=== PATIENT | female | born 1955 | race Caucasian/White ===

== ENCOUNTER 2016-10-14 18:53 | Emergency (ER) | payer OTHER ==
[~2016-10-14] VITALS: Ht 167.6 cm; Wt 54.4 kg
[2016-10-14] VITALS (10 sets, daily range): BP systolic 123–150; BP diastolic 78–90
[2016-10-14] MEDS ORDERED: Morphine Sulfate 4mg/ml Inj IM ONE (19:15)
[2016-10-14] MEDS ORDERED: Propofol 10mg/ml 20ml IV ONE ×2 (20:02→20:45)
[2016-10-14 20:07] LABS: BASOPHILS % (AUTO) 1.6 % (0.0-2.0); EOSINOPHILS % (AUTO) 1.5 % (0.0-3.0); LYMPHOCYTES % (AUTO) 27.7 % (20.0-45.0); MEAN CORPUSCULAR HEMOGLOBIN 36.3 PG (27.0-31.0); MEAN CORPUSCULAR HGB CONC 36.5 G/DL (32.0-36.0); MEAN CORPUSCULAR VOLUME 99 FL (80-99); MONOCYTES % (AUTO) 8.3 % (1.0-10.0); NEUTROPHILS % (AUTO) 60.8 % (45.0-75.0); PLATELET COUNT 236 K/UL (150-450); RED BLOOD COUNT 3.65 M/UL (4.20-5.40); RED CELL DISTRIBUTION WIDTH 11.7 % (11.6-14.8); WHITE BLOOD COUNT 9.1 K/UL (4.8-10.8)
--- NOTE | 2016-10-14 20:24 | Emergency Room Report ---
History of Present Illness General Chief Complaint: Lower Extremity Injury Source: Patient (HUMERA PARISI) Present Illness HPI The patient is a 61-year-old female presenting with right ankle pain. She states that she tripped on a tree branch today and felt the right ankle folded underneath her. Pain is an 8/10 dull ache and does not radiate from the right ankle. Worse with touch. She denies any numbness or tingling. She states she is unable to bear weight on the right foot. She denies previous injury to the ankle. She denies any other injury. She denies any other symptoms (HUMERA PARISI) Allergies: Coded Allergies: PENICILLINS (Verified Allergy, Unknown, 10/14/16) Patient History Past Medical History: see triage record Pertinent Family History: none Now: No Reviewed Nursing Documentation: PMH: Agreed, PSxH: Agreed (HUMERA PARISI) Nursing Documentation-PMH Hx Asthma: Yes (HUMERA PARISI) Review of Systems All Other Systems: negative except mentioned in HPI (HUMERA PARISI) Physical Exam Vital Signs Date Time Temp Pulse Resp B/P Pulse Ox O2 Delivery O2 Flow Rate FiO2 10/14/16 18:47 97.9 78 16 125/76 98 Room Air Sp02 EP Interpretation: reviewed, normal General Appearance: no apparent distress, alert, GCS 15, non-toxic Head: normocephalic, atraumatic Eyes: bilateral eye normal inspection, bilateral eye PERRL ENT: hearing grossly normal, normal pharynx, no angioedema, normal voice Respiratory: chest non-tender, lungs clear, normal breath sounds, speaking full sentences Cardiovascular #1: regular rate, rhythm, no edema Musculoskeletal: decreased range of motion, swelling - R ankle, other - R ankle deformity, tender - TTP diffusely over the R ankle Neurologic: alert, oriented x3, responsive, motor strength/tone normal, sensory intact, speech normal Psychiatric: judgement/insight normal, memory normal, mood/affect normal, no suicidal/homicidal ideation Skin: normal color, no rash, warm/dry, well hydrated Lymphatic: no adenopathy (HUMERA PARISI) Procedures Splinting Splinting : Consent: Verbal Location: R leg Hand-Made Type: plaster Splint: sugar-tong - sugar tong + posterior Pre-Proc Neuro Vasc Exam: normal Post-Proc Neuro Vasc Exam: normal Patient Tolerated: Well Complications: None (HUMERA PARISI) Joint Reduction Joint Reduction : Consent: Written Joint Reduction Site: other - R ankle Procedural Sedation: Yes Reduction Attempts: One Pre-Procedure NV Exam: Yes Post-Procedure NV Exam: Yes Post Joint Reduction Film: joint not reduced Patient Tolerated: Well Complications: None (HUMERA PARISI) Procedural Sedation Consent: Written Time out called at: 20:10 Pre-Sedation Assessment: Plan for Sedation Discuss Airway Assessment (Malampati): I Heart: normal Lungs: normal Abdomen: normal Extremities: normal Procedures/Plans: Closed Reduction Plan for Moderate Sedation: Propofol ASA Score: I Start Time: 20:15 End Time: 20:18 Communication: No Apparent Limitation Mental Status: Awake Respiration: Unlabored Skin Condition: WNL Abdomen: WNL Nausea: NO Vomiting: NO (MARICARMEN FRANKLIN D.O.) Medical Decision Making PA Attestation Dr. Franklin is my supervising physician. Patient management was discussed with my supervising physician (HUMERA PARISI) Diagnostic Impression: Primary Impression: Ankle fracture, right Qualified Codes: S82.891A - Other fracture of right lower leg, initial encounter for closed fracture Additional Impression: Ankle dislocation Qualified Codes: S93.04XA - Dislocation of right ankle joint, initial encounter ER Course The patient is a 61-year-old female presenting with right ankle pain Ddx considered include but not limited to sprain/strain, fracture, contusion, dislocation, among others PE: NAD Right ankle has obvious deformity. Tenderness to palpation diffusely with soft tissue swelling. Sensation is intact. Full active range of motion of toes. Skin is intact. DP pulse 2+ Right ankle x-ray shows a tri-mal fracture with dislocation Please see Dr. Franklin's note for procedural sedation. The joint felt easily reduced and in place during reduction attempt. A right long-leg posterior and sugar tong splint placed. Postreduction films show an inadequate reduction. She was told that we advised her to stay in the hospital in order to have orthopedic consult. She has declined and states that she will followup with her primary doctor as soon as possible and obtain referral for orthopedics. We informed her to return if she is unable to followup with primary doctor within the next 2 days. She agrees. She is given a prescription for pain medications. ER precautions given (HUMERA PARISI P.A.) ER Course Please note that the post reduction x-ray demonstrated continued dislocation, very minimally improved. Clinically the patient had appropriate reduction, at this time likely unstable fracture with reduction/dislocation with a slight movement. With this we did discuss admission to the hospital with the patient with more rapid orthopedic intervention, patient does state that she has close primary physician followup, she also mentioned happy to take care of pets at home, she understands that the symptoms could lead to worsening pathology such as compartment syndrome, vascular pathology, at this time continues to be significantly better however, splint is in place patient is aware that she requires orthopedic examination the next 24-48 hours, if she has any difficulty with this she was told to return to the emergency room (MARICARMEN FRANKLIN D.O.) Other X-Ray Diagnostic Results Other X-Ray Diagnostic Results #1: X-Ray ordered: R ankle # of Views/Limited Vs Complete: 3 View Indication: Pain EP Interpretation: Yes Interpretation: other - tri mal fracture + dislocation Impression: Other - Fx and dislocation Interpreting ER Provider: DO FAUSTO Lizarraga Scribe Text I am acting as scribe for my supervising physician. My supervising physician's interpretation of the R ankle xray is that there is a tri-mal fracture with dislocation Other X-Ray Diagnostic Results #2: X-Ray ordered: R ankle # of Views/Limited Vs Complete: 3 View Indication: Pain EP Interpretation: Yes Interpretation: other - partial reduction Impression: Other - tri-mal fracture with dislocation. Inadequate reduction Interpreting ER Provider: DO FAUSTO Lizarraga Scribe Text I am acting as scribe for my supervising physician. My supervising physician's interpretation of the R xrays show inadequate reduction (HUMERA PARISI P.ADora) Last Vital Signs Date Time Temp Pulse Resp B/P Pulse Ox O2 Delivery O2 Flow Rate FiO2 10/14/16 19:53 97.9 81 20 123/81 98 Room Air Status: improved (HUMERA PARISI P.A.) Disposition: HOME, SELF-CARE Condition: Stable Scripts Hydrocodone Bit/Acetaminophen 5-325* (NORCO 5-325 TABLET*) 1 Each Tablet 1 TAB ORAL Q6HR Y for For Pain, #10 TAB Prov: HUMERA PARISI.Favio 10/14/16 Ibuprofen* (MOTRIN*) 600 Mg Tablet 600 MG ORAL Q8H Y for For Pain, #30 TAB 0 Refills Prov: HUMERA PARISI P.A. 10/14/16 HUMERA PARISI Oct 14, 2016 20:24 MARICARMEN FRANKLIN D.O. Oct 14, 2016 21:49
[2016-10-14 20:25] LABS: PROTHROMBIN TIME 10.7 SEC (9.30-11.50)
[2016-10-14 20:26] LABS: ANION GAP 17 (5-15); CALCIUM 9.5 mg/dL (8.6-10.2); CARBON DIOXIDE 23 mEQ/L (20-30); CHLORIDE 106 mEQ/L (98-107); CREATININE 0.7 mg/dL (0.5-0.9); GLOMERULAR FILTRATION RATE > 60 mL/min (>60); HEMOLYSIS 3; SODIUM 146 mEQ/L (135-145)
[2016-10-14] MEDS ORDERED: IBUPROFEN600 MG ORAL (21:29)
[2016-10-14] MEDS ORDERED: NORCO 5-325 TA1 EAC1 ORAL (21:29)
--- NOTE | 2016-10-15 09:30 | Diagnostic Imaging Report ---
Indications: Fall, right ankle pain Technique: 3 views right ankle Findings: Comparison: None There is oblique fracture through the distal fibula at and above the level of the ankle joint. Distal fragment demonstrates partial bone with lateral, complete bone width posterior displacement with moderate angulation. There is a transverse fracture through the medial malleolus, minimally distracted. There is a longitudinal fracture through the posterior malleolus, displaced and angulated posteriorly. The talus is displaced posteriorly along with the aforementioned distal fracture fragments, widening of the tibiotalar joint anteriorly. Surrounding soft tissues are swollen. No associated gas or foreign body. IMPRESSION: Trimalleolar fracture Posterior dislocation of tibiotalar joint
--- NOTE | 2016-10-15 09:35 | Diagnostic Imaging Report ---
Indications: Right ankle fracture-dislocation, status post closed reduction and splinting Technique: Portable AP and lateral views of the right ankle at 2031 Findings: Comparison: 1919 Trimalleolar fractures have been partially reduced. Distal fragments and talus remain displaced posteriorly. Fiberglass splint has been applied. IMPRESSION: Partial, inadequate reduction of trimalleolar fractures and posterior dislocation of the ankle joint
== END 2016-10-14 22:04 | disposition home or self-care (01) ==
LOC: EDBD 18:53 → EMR 20:44 → CANBEDREQ 21:35 → EMR 22:04
DX: S93.04XA Dislocation of right ankle joint, initial encounter (principal); S82.891A Other fracture of right lower leg, initial encounter for closed fracture; J45.909 Unspecified asthma, uncomplicated; Z88.0 Allergy status to penicillin; X50.1XXA Overexertion from prolonged static or awkward postures, initial encounter; Y92.9 Unspecified place or not applicable
CPT/HCPCS: 27840; 29515; 36415; 73600; 73610; 80048; 85025; 85610; 85730; 96374; 99284; J2704; Z7502

== ENCOUNTER 2020-04-01 07:41 | Emergency (ER) | payer OTHER ==
[~2020-04-01] VITALS: Ht 167.6 cm; Wt 74.8 kg
[~2020-04-01 07:41] MED LIST: IBUPROFEN600 MG ORAL; NORCO 5-325 TA1 EAC1 ORAL
[2020-04-01] MEDS ORDERED: ALPRAZOLAM0.25 MG ORAL (08:30)
[2020-04-01] MEDS ORDERED: CLINDAMYCIN HC300 MG ORAL (08:30)
[2020-04-01] MEDS ORDERED: PREDNISONE20 MG ORAL (08:30)
[2020-04-01 08:38] VITALS: BP 129/88
--- NOTE | 2020-04-01 11:33 | Emergency Room Report ---
History of Present Illness General Chief Complaint: Toothache Source: Patient Present Illness HPI 64-year-old female presents for evaluation. Has multiple complaints stating that in December she had 2 teeth pulled and started developing swelling in her neck. Has been placed on antibiotics multiple times with resolution but then the swelling returns. Causes some discomfort. States that she believes that it is causing her to not breathe at night. Patient states she feels very tremulous and shaky and has tingling sensation in her hands and feet. Denies fevers or chills. No other aggravating relieving factors. 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 COVID-19 Screening: Negative COVID-19 COVID-19 Testing Source: negative, 3 weeks ago, [facility] Patient History Past Medical History: HTN, psych hx Past Surgical History: none Pertinent Family History: none Social History: Denies: smoking, alcohol use, drug use Now: No Immunizations: UTD Reviewed Nursing Documentation: PMH: Agreed; PSxH: Agreed Nursing Documentation-PMH Hx Cardiac Problems: No Hx Hypertension: Yes Hx Pacemaker: No Hx Asthma: No Hx COPD: No Hx Diabetes: No Hx Cancer: No Hx Gastrointestinal Problems: No Hx Dialysis: No History Of Psychiatric Problem: Yes - anxiety Hx Neurological Problems: No Hx Cerebrovascular Accident: No Hx Seizures: No Review of Systems All Other Systems: negative except mentioned in HPI Physical Exam Vital Signs Date Time Temp Pulse Resp B/P (MAP) Pulse Ox O2 Delivery O2 Flow Rate FiO2 04/01/20 07:52 98.4 89 18 129/88 (102) 97 Room Air Sp02 EP Interpretation: reviewed, normal General Appearance: no apparent distress, alert, GCS 15, non-toxic Head: normocephalic, atraumatic Eyes: bilateral eye normal inspection, bilateral eye PERRL ENT: hearing grossly normal, normal pharynx, no angioedema, normal voice Neck: full range of motion, supple/symm/no masses Respiratory: chest non-tender, lungs clear, normal breath sounds, speaking full sentences Cardiovascular #1: regular rate, rhythm, no edema Cardiovascular #2: 2+ carotid (R), 2+ carotid (L), 2+ radial (R), 2+ radial (L), 2+ dorsalis pedis (R), 2+ dorsalis pedis (L) Gastrointestinal: normal bowel sounds, non tender, soft, non-distended, no guarding, no rebound Rectal: deferred Genitourinary: normal inspection, no CVA tenderness Musculoskeletal: back normal, normal range of motion, gait/station normal, non- tender Neurologic: alert, motor strength/tone normal, oriented x3, sensory intact, responsive, speech normal Psychiatric: judgement/insight normal, memory normal, mood/affect normal, no suicidal/homicidal ideation Reflexes: 3+ bicep (R), 3+ bicep (L), 3+ tricep (R), 3+ tricep (L), 3+ knee (R), 3+ knee (L) Lymphatic: no adenopathy Medical Decision Making Diagnostic Impression: Primary Impression: Anxiety Additional Impressions: Sinusitis Qualified Codes: J01.91 - Acute recurrent sinusitis, unspecified Toothache ER Course Hospital Course 64-year-old female presents with pain in her neck and swelling after dental procedure 3 months ago Differential diagnoses include: URI, pharyngitis, lymphadenopathy Clinical course Patient placed on stretcher. After initial history, physical exam reveals a middle aged female in no acute distress. Bilateral TM unremarkable. No pharyngeal erythema. No tonsillar exudates. No lymphadenopathy. No stridor. No palpable swelling appreciated on exam to the neck During assessment patient appeared very tremulous and shaky. Patient wrote down what she needed to tell me. Patient has severe anxiety based on my assessment. I believe anxiety is contributing to exacerbation of her symptoms. I offered to perform a CT of her neck to determine if there is any evidence of an infection or abscess but she declined stating that she has ENT referral this week. I offered to prescribe her some low-dose Xanax as she has not been previously prescribed medication for her anxiety. Patient agreed. Safe for discharge with close outpatient follow-up Diagnosis - anxiety, tootache, sinusitits Stable and discharged home with prescriptions for Prednisone, clindamycin, xanax. Instructed to followup with PMD/ENT. Return to ED if symptoms recur or worsen Last Vital Signs Date Time Temp Pulse Resp B/P (MAP) Pulse Ox O2 Delivery O2 Flow Rate FiO2 04/01/20 08:38 98.4 18 129/88 97 Room Air 04/01/20 07:52 89 Status: improved Disposition: HOME, SELF-CARE Condition: Stable Scripts Alprazolam* (XANAX*) 0.25 Mg Tablet 0.25 MG ORAL TID PRN for For Anxiety, #10 TAB Prov: Thaddeus Guevara MD 04/01/20 Prednisone* (PREDNISONE*) 20 Mg Tablet 40 MG ORAL DAILY, #10 TAB Prov: Thaddeus Guevara MD 04/01/20 Clindamycin Hcl (CLINDAMYCIN HCL) 300 Mg Capsule 300 MG ORAL THREE TIMES A DAY, #21 CAP Prov: Thaddeus Guevara MD 04/01/20 Referrals: NON PHYSICIAN (PCP) Patient Instructions: Dental Pain Thaddeus Guevara MD Apr 01, 2020 11:33
== END 2020-04-01 08:34 | disposition home or self-care (01) ==
LOC: EMR 08:20
DX: J01.91 Acute recurrent sinusitis, unspecified (principal); K08.89 Other specified disorders of teeth and supporting structures; F41.9 Anxiety disorder, unspecified; I10 Essential (primary) hypertension; Z88.0 Allergy status to penicillin
CPT/HCPCS: 99282